=== PATIENT | male | born 1970 | race Two or more races ===

== ENCOUNTER 2016-04-08 11:46 | Emergency (ER) | payer MEDICAID ==
[~2016-04-08] VITALS: Ht 175.3 cm; Wt 79.5 kg
[2016-04-08 14:11] VITALS: BP 121/76
== END 2016-04-08 14:12 | disposition home or self-care (01) ==
LOC: EMS 11:47
DX: J02.8 Acute pharyngitis due to other specified organisms (principal)
CPT/HCPCS: 99283

== ENCOUNTER 2016-06-16 09:34 | Emergency (ER) | payer MEDICAID ==
[~2016-06-16] VITALS: Ht 167.6 cm; Wt 78.0 kg
[2016-06-16] MEDS ORDERED: IBUPROFEN 800 MG TABLET PO ONE (11:00)
[2016-06-16 11:42] VITALS: BP 121/80
== END 2016-06-16 11:46 | disposition home or self-care (01) ==
LOC: EMS 09:35
DX: S39.012A Strain of muscle, fascia and tendon of lower back, initial encounter (principal); X58.XXXA Exposure to other specified factors, initial encounter; Y93.89 Activity, other specified; Y92.89 Other specified places as the place of occurrence of the external cause; Y99.8 Other external cause status
CPT/HCPCS: 99282

== ENCOUNTER 2018-01-05 09:30 | Emergency (ER) | payer MEDICAID ==
[~2018-01-05] VITALS: Ht 165.1 cm; Wt 70.0 kg
[2018-01-05 09:39] VITALS: BP 121/85
[2018-01-05] MEDS ORDERED: KETOROLAC TROMETHAMINE 60 MG/2 ML VIAL IM ONE (11:00)
== END 2018-01-05 11:43 | disposition home or self-care (01) ==
LOC: EDUNIT# 09:30 → EMS 09:43
DX: S16.1XXA Strain of muscle, fascia and tendon at neck level, initial encounter (principal); X58.XXXA Exposure to other specified factors, initial encounter; Y93.89 Activity, other specified; Y92.69 Other specified industrial and construction area as the place of occurrence of the external cause; Y99.0 Civilian activity done for income or pay
CPT/HCPCS: 96372; 99283; J1885